=== PATIENT | male | born 1950 | race Caucasian/White ===

== ENCOUNTER 2021-04-24 13:21 | Inpatient (IN) | payer MEDICARE, BC ==
[~2021-04-24] VITALS: Ht 170.3 cm; Wt 68.3 kg
[2021-05-23] VITALS (14 sets, daily range): BP systolic 117–145; BP diastolic 55–71; PULSE 56–94; TEMP 97.2–97.9
[2021-05-23] MEDS ORDERED: PRESERVISION1 SGL PO (06:39)
[2021-05-23] MEDS ORDERED: FEOSOL45 MG PO (06:41)
--- NOTE | 2021-05-23 19:45 | NUR ---
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 Assessment complete. A&Ox4. Denies pain/shortness of breath. VS stable. IV to left hand with LR@100mls/hr. Has had one episode of emesis on previous shift and received zofran. States he is still slightly nauseas. Hankins cath with yellow urine and small pea sized clots. SCDs bilat. Denies current needs. Call light in reach. Will monitor.
--- NOTE | 2021-05-23 22:15 | NUR ---
Up out of bed to ambulate at this time. Ambulated well with stand by assist. After ambulating became very nauseas and had a large amount of emesis in toilet. Dr Terry notified for phenergan order. Received and given. Will monitor effectiveness.
--- NOTE | 2021-05-23 22:45 | NUR ---
RT notified of IS order and patient has not received one yet.
--- NOTE | 2021-05-23 23:56 | NUR ---
Resting eyes closed. No s/s of pain or discomfort noted.
[2021-05-24 03:19] VITALS: BP 116/54; PULSE 62; TEMP 98
--- NOTE | 2021-05-24 05:45 | NUR ---
Rested off and on this shift. Had two episodes of emesis. Stsates is less nauseas this AM but refused the scheduled tylenol stating "I would rather wait to take pills until after I eat later." Received toradol scheduled for pain with pain rated 0/10. Hankins cath with yellow urine and small pea size clots. Was up out of bed this shift. LR@100ml/hr to left hand IV infusing without difficulty. Has not tolerated liquids. SCDs bilat. Denies current needs. Call light in reach. Will monitor.
[2021-05-24 06:50] LABS: HEMOGLOBIN 11.5 g/dl (13.5-18.0)
[2021-05-24 06:53] LABS: HEMATOCRIT 34.5 % (42.0-52.0)
[2021-05-24 06:59] LABS: CALCIUM 8.1 mg/dL (8.4-10.2); CREATININE, serum 1.07 mg/dL (0.72-1.25); POTASSIUM 4.3 mmol/L (3.5-4.5)
[2021-05-24 08:00] VITALS: BP 125/53; PULSE 61; TEMP 98.1
--- NOTE | 2021-05-24 09:09 | NUR ---
Social Work student and RODGER Johnson met with patient to discuss discharge planning. Patient lives here in [place] with his , Rhea (ph#[phone]). Patient's PCP is Dr. Gregorio Jackman, and the patient receives his medications from [facility]. Patient does not utilize any DME, and he is independent with his ADL's. Patient does have a DPOA-HC. Patient has four children: Peg, Amina, Shane, and James, and two sisters: Terra and Zakiya. Discharge plan: Home
--- NOTE | 2021-05-24 09:48 | NUR ---
PT RESTING IN BED. BOONE TO DD WITH CLEAR YELLOW URINE IN BAG. PT DENIES PAIN OR NEEDS AT THIS TIME. PT EATING AND DRINKING WITHOUT C\O NAUSEA OR VOMITING.
--- NOTE | 2021-05-24 10:21 | NUR ---
Initial visit; Patient thanked [employer] for looking in on him, offering God's blessings and keeping him in [employer]'s prayers. [employer] will follow up.
[2021-05-24 12:00] VITALS: BP 120/54; PULSE 66; TEMP 98.1
[2021-05-24 15:26] VITALS: BP 102/48; BP 132/68; PULSE 61; PULSE 96; TEMP 97.4; TEMP 97.7
[2021-05-24 20:27] VITALS: BP 132/60; PULSE 68; TEMP 98.3
[2021-05-24 23:23] VITALS: BP 122/60; PULSE 63; TEMP 98.4
--- NOTE | 2021-05-25 01:56 | NUR ---
PATIENT DOING WELL TONIGHT. AMBULATED IN [place] INDEPENDENTLY. BOONE TO DD WITH CLEAR YELLOW URINE. X5 LAP SITES CDI. DENIES NAUSEA OR PAIN. TAKING SCHEDULED MEDS WITHOUT ISSUE.
[2021-05-25 04:01] VITALS: BP 126/62; PULSE 63; TEMP 97.7
[2021-05-25 07:56] VITALS: BP 124/68; PULSE 60; TEMP 98.3
--- NOTE | 2021-05-25 08:54 | NUR ---
PT RESTING IN BED. PHYSICIANS ROUNDED ON PT THIS AM. PLAN ON DISCHARGE LATER TODAY. PT TO DISCHARGE WITH [facility] FOR 2 WKS AT HOME THEN D/C AT FOLLOW UP APPT.
--- NOTE | 2021-05-25 10:59 | NUR ---
DISCHARGE INSTSRUCTIONS REVIEWED WITH PT AND . LEG BAG TEACHING COMPLETED. QUESTIONS ANSWERED. PT LEFT UNIT PER WHEEL CHAIR.
--- NOTE | 2021-05-25 11:24 | NUR ---
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 No needs right now.
== END 2021-05-25 11:01 | disposition home or self-care (01) | DRG 708 ==
LOC: INPTSU 05-23 05:36 → SURG 05-23 05:36
PROVIDERS: ADMIT Urology
PROC: 8E0W4CZ Robotic Assisted Procedure of Trunk Region, Percutaneous Endoscopic Approach (ICD-10-PCS; 2021-05-23)
PROC: 0VT04ZZ Resection of Prostate, Percutaneous Endoscopic Approach (ICD-10-PCS; principal; 2021-05-23 07:30)
DX: C61 Malignant neoplasm of prostate (principal); R11.2 Nausea with vomiting, unspecified
CPT/HCPCS: A4314; A9284; J0690; J1885; J2405; J2550; J7120